=== PATIENT | male | born 1950 | race Caucasian/White ===

== ENCOUNTER 2017-07-01 21:05 | Emergency (ER) | payer OTHER, MEDICARE ==
[2017-07-01] MEDS ORDERED: PERCOCET 5-3251 EACH PO (23:31)
[2017-07-02] MEDS ORDERED: NORCO 5-325 TA1 EACH PO (00:41)
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
== END 2017-07-02 01:10 | disposition home or self-care (01) ==
LOC: ED 21:05
DX: S42.032A Displaced fracture of lateral end of left clavicle, initial encounter for closed fracture (principal); S22.32XA Fracture of one rib, left side, initial encounter for closed fracture; S22.31XA Fracture of one rib, right side, initial encounter for closed fracture; V43.52XA Car driver injured in collision with other type car in traffic accident, initial encounter
CPT/HCPCS: 71260; 73000; 73030; 74177; 80053; 82150; 82550; 85025; 86850; 86900; 86901; 96374; 96375; 99284; G0480; J1170; J2405; Q9967